=== PATIENT | male | born 1970 | race Caucasian/White ===

== ENCOUNTER 2016-12-19 11:12 | Inpatient (IN) | payer BC ==
--- NOTE | 2016-12-19 11:58 | CPEKG ---
Heart Rate: 92 RR Interval: 652 P-R Interval: 184 QRSD Interval: 88 QT Interval: 348 QTC Interval: 431 P [place]: 50 QRS [place]: 29 T Wave [place]: 1 EKG Severity - BORDERLINE ECG - EKG Impression: SINUS RHYTHM EKG Impression: BORDERLINE T ABNORMALITIES, INFERIOR LEADS Electronically Signed By: Hever Vee 19-Dec-2016 14:25:16
--- NOTE | 2016-12-19 11:58 | CPEKG ---
Heart Rate: 92 RR Interval: 652 P-R Interval: 184 QRSD Interval: 88 QT Interval: 348 QTC Interval: 431 P [place]: 50 QRS [place]: 29 T Wave [place]: 1 EKG Severity - BORDERLINE ECG - EKG Impression: SINUS RHYTHM EKG Impression: BORDERLINE T ABNORMALITIES, INFERIOR LEADS Electronically Signed By: Hever Vee 19-Dec-2016 14:25:16
--- NOTE | 2016-12-19 12:10 | EDPHY ---
H & P Time Seen by Provider: 12/19/16 11:53 HPI/ROS: CHIEF COMPLAINT: Fever and chills HISTORY OF PRESENT ILLNESS: 46-year-old man was admitted last year and had fever of unknown origin. Discharge on 11/23/2015 without antibiotics. Patient presents today with fever starting last week on Monday. He was symptomatic for 4 days and then his symptoms abated. The reoccurred this morning with symptomatic fever and chills as well as a nonproductive cough. He had some nausea and vomiting today with some epigastric abdominal pain which is been intermittent over the last 2 months. REVIEW OF SYSTEMS: Eye: no change in vision ENT: no sore throat Cardiac: no chest pain or syncope Pulmonary: Not short of breath, nonproductive cough Abdomen: No diarrhea. No coffee-ground emesis or hematemesis. Musculoskeletal: no back pain Skin: no rash, on Enbrel for dermatomyositis Neuro: no headache Constitutional: HPI : no urinary symptoms A comprehensive 10 point review of systems is otherwise negative aside from elements mentioned in the history of present illness. PAST MEDICAL HISTORY: MCTD, dermatomyositis, HTN, Afib Social history: No recent travel to developing country, no IVDA General Appearance: Alert and conversant, cooperative. Eyes: No scleral icterus. ENT, Mouth: Normal mucous membranes. Respiratory: Normal respiratory effort, breath sounds equal, lungs are clear to auscultation. Cardiovascular: Regular rate and rhythm. Gastrointestinal: Abdomen is soft and non tender. No McBurney's point tenderness and no Sdouza sign. Neurological: Alert and oriented x3. Normally conversant. Face symmetric, normal movement and sensation in all extremities. Skin: Diaphoretic. No petechiae or purpura. Musculoskeletal: No neck stiffness, normal range of motion of the neck. Psychiatric: Not agitated. Emergency Department course/MDM: 1320: Discussed with Javi for ID. Case discussed in detail, he recommends CT abdomen pelvis, 1g ertapenem IV. Infectious disease physician recommendation discussed with the patient and consented. IV fluids 2 liters. 12-lead EKG interpreted by me; official reading is in trace master. My interpretation is sinus rhythm rate 92 with no ischemic changes. CT scan reported to me by radiologist is negative for intra-abdominal abscess or other reason for fever. Smoking Status: Never smoked Constitutional: Initial Vital Signs Temperature (C) 38.4 C H 12/19/16 11:22 Heart Rate 120 H 12/19/16 11:22 Respiratory Rate 18 12/19/16 11:22 Blood Pressure 134/87 H 12/19/16 11:22 O2 Sat (%) 96 12/19/16 11:22 O2 Delivery Mode Room Air Allergies/Adverse Reactions: No Known Allergies Allergy (Verified 11/08/15 08:52) Home Medications: Medication Instructions Recorded Bisoprolol Fumarate [Zebeta (*)] 5 mg PO DAILY 11/08/15 Folic Acid [Folic Acid 1 MG (*)] 2 mg PO DAILY 11/08/15 Hydroxychloroquine Sulfate 400 mg PO DAILY 11/08/15 [Plaquenil 200 mg (*)] Etanercept [Enbrel] 50 mg SQ MO 12/19/16 Methotrexate Sodium [Rheumatrex 12.5 mg PO WE 12/19/16 2.5 mg (RX)] Medical Decision Making - Diagnostics Imaging Results: Imaging Impressions Chest X-Ray 12/19/16 12:10 Impression: Stable and normal. No pneumonia. Differential Diagnosis: Differential considered including but not limited to pneumonia, intra-abdominal abscess, UTI, sepsis, meningitis, viral syndrome. Consult/Admit Bed Type: [place] [id number] - Data Points Laboratory Results: Laboratory Results 12/19/16 11:35 12/19/16 11:35 12/19/16 12/19/16 12/19/16 12:55 12:20 11:35 WBC RBC Hgb Hct MCV MCH MCHC RDW Plt Count MPV Neut % (Auto) Lymph % (Auto) [place] % (Auto) Eos % (Auto) Baso % (Auto) Nucleat RBC Rel Count Absolute Neuts (auto) Absolute Lymphs (auto) Absolute Monos (auto) Absolute Eos (auto) Absolute Basos (auto) Absolute Nucleated RBC Immature Gran % Seg Neutrophils % Band Neutrophils % Lymphocytes % Monocytes % Immature Gran # Absolute Seg Neuts Absolute Band Neuts Absolute Lymphocytes Absolute Monocytes Toxic Granulation Platelet Estimate Large Platelets PT INR APTT VBG Lactic Acid 1.8 mmol/L mmol/L (0.7-2.1) Sodium 140 mEq/L mEq/L (134-144) Potassium 4.0 mEq/L mEq/L (3.5-5.2) Chloride 103 mEq/L mEq/L (97-110) Carbon Dioxide 19 mEq/l L mEq/l (22-31) Anion Gap 18 mEq/L H mEq/L (8-16) BUN 16 mg/dL mg/dL (7-23) Creatinine 1.1 mg/dL mg/dL (0.7-1.3) Estimated GFR > 60 Glucose 108 mg/dL H mg/dL (70-100) Calcium 9.9 mg/dL mg/dL (8.5-10.4) Total Bilirubin 2.9 mg/dL H mg/dL (0.1-1.4) Conjugated Bilirubin 0.7 mg/dL H mg/dL (0.0-0.5) Unconjugated Bilirubin 2.2 mg/dL H mg/dL (0.0-1.1) AST ALT Alkaline Phosphatase Total Protein Albumin Procalcitonin Urine Color CINDY Urine Appearance HAZY Urine pH 5.0 (5.0-7.5) Ur Specific [place] 1.028 (1.002-1.030) Urine Protein NEGATIVE (NEGATIVE) Urine Ketones NEGATIVE (NEGATIVE) Urine Blood NEGATIVE (NEGATIVE) Urine Nitrate NEGATIVE (NEGATIVE) Urine Bilirubin NEGATIVE (NEGATIVE) Urine Urobilinogen 2.0 EU H EU (0.2-1.0) Ur Leukocyte Esterase NEGATIVE (NEGATIVE) Urine Glucose NEGATIVE (NEGATIVE) 12/19/16 12/19/16 12/19/16 11:35 11:35 11:30 WBC 26.84 10^3/uL H 10^3/uL (3.80-9.50) RBC 5.11 10^6/uL 10^6/uL (4.40-6.38) Hgb 16.4 g/dL g/dL (13.7-17.5) Hct 45.7 % % (40.0-51.0) MCV 89.4 fL fL (81.5-99.8) MCH 32.1 pg pg (27.9-34.1) MCHC 35.9 g/dL g/dL (32.4-36.7) RDW 12.3 % % (11.5-15.2) Plt Count 269 10^3/uL 10^3/uL (150-400) MPV 9.9 fL fL (8.7-11.7) Neut % (Auto) Not Reported Lymph % (Auto) Not Reported [place] % (Auto) Not Reported Eos % (Auto) Not Reported Baso % (Auto) Not Reported Nucleat RBC Rel Count 0.0 % % (0.0-0.2) Absolute Neuts (auto) Not Reported Absolute Lymphs (auto) Not Reported Absolute Monos (auto) Not Reported Absolute Eos (auto) Not Reported Absolute Basos (auto) Not Reported Absolute Nucleated RBC 0.00 10^3/uL 10^3/uL (0-0.01) Immature Gran % Not Reported Seg Neutrophils % 81 % % Band Neutrophils % 8 % % Lymphocytes % 8 % % Monocytes % 3 % % Immature Gran # Not Reported Absolute Seg Neuts 21.74 10^/uL H 10^/uL (1.70-6.50) Absolute Band Neuts 2.15 10^3/uL H 10^3/uL (0.00-0.70) Absolute Lymphocytes 2.15 10^3/uL 10^3/uL (1.00-3.00) Absolute Monocytes 0.81 10^3/uL H 10^3/uL (0.30-0.80) Toxic Granulation PRESENT H Platelet Estimate ADEQUATE (ADEQ) Large Platelets PRESENT H PT 13.8 SEC SEC (12.0-15.0) INR 1.07 (0.83-1.16) APTT 27.7 SEC SEC (23.0-38.0) VBG Lactic Acid Sodium Potassium Chloride Carbon Dioxide Anion Gap BUN Creatinine Estimated GFR Glucose Calcium Total Bilirubin 2.9 mg/dL H mg/dL (0.1-1.4) Conjugated Bilirubin 0.0 mg/dL mg/dL (0.0-0.5) Unconjugated Bilirubin 2.2 mg/dL H mg/dL (0.0-1.1) AST 31 IU/L IU/L (17-59) ALT 48 IU/L IU/L (21-72) Alkaline Phosphatase 66 IU/L IU/L (38-126) Total Protein 7.8 g/dL g/dL (6.3-8.2) Albumin 4.7 g/dL g/dL (3.5-5.0) Procalcitonin 0.83 ng/mL H ng/mL (0.02-0.10) Urine Color Urine Appearance Urine pH Ur Specific [place] Urine Protein Urine Ketones Urine Blood Urine Nitrate Urine Bilirubin Urine Urobilinogen Ur Leukocyte Esterase Urine Glucose Medications Given: Discontinued Medications Sodium Chloride (Ns) 1,000 mls @ 0 mls/hr IV EDNOW ONE; Wide Open PRN Reason: Protocol Stop: 12/19/16 13:10 Last Admin: 12/19/16 13:21 Dose: 1,000 mls Sodium Chloride (Ns) 1,000 mls @ 0 mls/hr IV EDNOW ONE; Wide Open PRN Reason: Protocol Stop: 12/19/16 13:10 Last Admin: 12/19/16 13:22 Dose: 1,000 mls Ertapenem 1 gm/ Sodium (Chloride) 100 mls @ 200 mls/hr IV EDNOW ONE PRN Reason: Protocol Stop: 12/19/16 13:50 Last Admin: 12/19/16 14:15 Dose: 100 mls Ondansetron HCl (Zofran) 4 mg IVP EDNOW ONE Stop: 12/19/16 13:10 Last Admin: 12/19/16 13:21 Dose: 4 mg Departure - Departure Disposition: [facility] Inpatient Acute Clinical Impression: Fever Qualifiers: Fever type: unspecified Qualified Code(s): R50.9 - Fever, unspecified Condition: Good
[2016-12-19 12:18] LABS: PLATELET COUNT 269 10^3/uL (150-400)
[2016-12-19 12:26] LABS: INR 1.07 (0.83-1.16); PROTIME(PATIENT) 13.8 SEC (12.0-15.0)
[2016-12-19] MEDS ORDERED: NS 1,000 ML IV ONE ×2 (13:09)
[2016-12-19] MEDS ORDERED: ONDANSETRON 4 MG/2 ML VIAL IVP ONE (13:09)
[2016-12-19] MEDS ORDERED: ERTAPENEM 1 GM in NS 100 ML IV ONE (13:21)
[2016-12-19] MEDS ORDERED: IOPAMIDOL (ISOVUE-300) 100 ML BTL ONE (13:40)
[2016-12-19] MEDS ORDERED: ONDANSETRON 4 MG/2 ML VIAL IVP PRN (15:06)
[2016-12-19] MEDS ORDERED: ONDANSETRON DISINTEGRATING 4 MG TAB PO PRN (15:06)
[2016-12-19] MEDS ORDERED: ACETAMINOPHEN 325 MG TAB PO PRN (15:06)
--- NOTE | 2016-12-19 15:06 | PDGENHP ---
History and Physical - Chief Complaint fever, myalgias - History of Present Illness 46 yo male with h/o mixed connective tissue disease on chronic immunosuppression presents to ED with myalgias and fever without a source. He developed myalgias, nausea, and headaches about a week ago. He felt better for several days. Last night he developed cold sweats, shakes/chills, and diffuse myalgias, localized mostly in his legs. He also had some headaches and nausea / vomiting, but denies headache or neck pain now. Some tenderness in his lower right back, but no dysuria, frequency, urgency or hematuria. He developed a cough this morning, non-productive. No sore throat. He has a h/o dermatomyositis, diagnosed in 2011. Rheumatology at [facility] changed his diagnosis to unspecified MCTD. He takes Enbrel, MTX and Plaquenil. When this presented, he had similar symptoms with myalgias, some low grade fevers, and rash. In addition, he was admitted one year ago with similar presentation and no source was found. In the ED, CXR, abdomen/pelvis CT and UA were unrevealing for source of infection. Blood cultures were drawn and he was started on empiric ertapenem. He is admitted to the hospital for further management. History Information - Allergies/Home Medication List Allergies/Adverse Reactions: No Known Allergies Allergy (Verified 11/08/15 08:52) Home Medications: Bisoprolol Fumarate [Zebeta (*)] 5 mg PO DAILY 11/08/15 [Last Taken 12/18/16] Folic Acid [Folic Acid 1 MG (*)] 2 mg PO DAILY 11/08/15 [Last Taken 12/18/16] Hydroxychloroquine Sulfate [Plaquenil 200 mg (*)] 400 mg PO DAILY 11/08/15 [ Last Taken 12/18/16] Etanercept [Enbrel] 50 mg SQ MO 12/19/16 [Last Taken 12/12/16] Methotrexate Sodium [Rheumatrex 2.5 mg (RX)] 12.5 mg PO WE 12/19/16 [Last Taken 12/14/16] I have personally reviewed and updated: family history, medical history, social history, surgical history - Past Medical History atrial fibrillation, hypertension Additional medical history: Undifferentiated mixed connective tissue disease. Previously carried diagnoses of dermatomyositis, psoriatic arthritis and discoid lupus. Now followed by Dr. Deshpande, rheumatology at [facility] - Surgical History Reports: no pertinent surgical hx - Family History Positive for: CAD - Social History Smoking Status: Never smoked Alcohol Use: None Drug Use: None Additional social history: Originally from [place], here for past 9 yrs. Works in [employer]. Review of Systems Review of Systems: ROS: 10pt was reviewed & negative except for what was stated in HPI & below Physical Exam Physical Exam: Temp Pulse Resp BP Pulse Ox 36.6 C 75 16 123/76 H 97 12/19/16 14:54 12/19/16 14:54 12/19/16 14:54 12/19/16 14:54 12/19/16 14:54 O2 (L/minute) 2 Constitutional: no apparent distress Eyes: PERRL Ears, Nose, Mouth, Throat: moist mucous membranes Cardiovascular: regular rate and rhythym, no murmur, rub, or gallop Respiratory: no respiratory distress, clear to auscultation Gastrointestinal: normoactive bowel sounds, soft, non-tender abdomen Skin: warm Musculoskeletal: full muscle strength Neurologic: AAOx3 Psychiatric: interacting appropriately Lab Data & Imaging Review 12/19/16 11:35 12/19/16 11:35 WBC 26.84 10^3/uL (3.80-9.50) H 12/19/16 11:35 RBC 5.11 10^6/uL (4.40-6.38) 12/19/16 11:35 Hgb 16.4 g/dL (13.7-17.5) 12/19/16 11:35 Hct 45.7 % (40.0-51.0) 12/19/16 11:35 MCV 89.4 fL (81.5-99.8) 12/19/16 11:35 MCH 32.1 pg (27.9-34.1) 12/19/16 11:35 MCHC 35.9 g/dL (32.4-36.7) 12/19/16 11:35 RDW 12.3 % (11.5-15.2) 12/19/16 11:35 Plt Count 269 10^3/uL (150-400) 12/19/16 11:35 MPV 9.9 fL (8.7-11.7) 12/19/16 11:35 Neut % (Auto) Not Reported 12/19/16 11:35 Lymph % (Auto) Not Reported 12/19/16 11:35 [place] % (Auto) Not Reported 12/19/16 11:35 Eos % (Auto) Not Reported 12/19/16 11:35 Baso % (Auto) Not Reported 12/19/16 11:35 Nucleat RBC Rel Count 0.0 % (0.0-0.2) 12/19/16 11:35 Absolute Neuts (auto) Not Reported 12/19/16 11:35 Absolute Lymphs (auto) Not Reported 12/19/16 11:35 Absolute Monos (auto) Not Reported 12/19/16 11:35 Absolute Eos (auto) Not Reported 12/19/16 11:35 Absolute Basos (auto) Not Reported 12/19/16 11:35 Absolute Nucleated RBC 0.00 10^3/uL (0-0.01) 12/19/16 11:35 Immature Gran % Not Reported 12/19/16 11:35 Seg Neutrophils % 81 % 12/19/16 11:35 Band Neutrophils % 8 % 12/19/16 11:35 Lymphocytes % 8 % 12/19/16 11:35 Monocytes % 3 % 12/19/16 11:35 Immature Gran # Not Reported 12/19/16 11:35 Absolute Seg Neuts 21.74 10^/uL (1.70-6.50) H 12/19/16 11:35 Absolute Band Neuts 2.15 10^3/uL (0.00-0.70) H 12/19/16 11:35 Absolute Lymphocytes 2.15 10^3/uL (1.00-3.00) 12/19/16 11:35 Absolute Monocytes 0.81 10^3/uL (0.30-0.80) H 12/19/16 11:35 Toxic Granulation PRESENT H 12/19/16 11:35 Platelet Estimate ADEQUATE (ADEQ) 12/19/16 11:35 Large Platelets PRESENT H 12/19/16 11:35 PT 13.8 SEC (12.0-15.0) 12/19/16 11:35 INR 1.07 (0.83-1.16) 12/19/16 11:35 APTT 27.7 SEC (23.0-38.0) 12/19/16 11:35 VBG Lactic Acid 1.8 mmol/L (0.7-2.1) 12/19/16 12:20 Sodium 140 mEq/L (134-144) 12/19/16 11:35 Potassium 4.0 mEq/L (3.5-5.2) 12/19/16 11:35 Chloride 103 mEq/L (97-110) 12/19/16 11:35 Carbon Dioxide 19 mEq/l (22-31) L 12/19/16 11:35 Anion Gap 18 mEq/L (8-16) H 12/19/16 11:35 BUN 16 mg/dL (7-23) 12/19/16 11:35 Creatinine 1.1 mg/dL (0.7-1.3) 12/19/16 11:35 Estimated GFR > 60 12/19/16 11:35 Glucose 108 mg/dL (70-100) H 12/19/16 11:35 Calcium 9.9 mg/dL (8.5-10.4) 12/19/16 11:35 Total Bilirubin 2.9 mg/dL (0.1-1.4) H 12/19/16 11:35 Conjugated Bilirubin 0.7 mg/dL (0.0-0.5) H 12/19/16 11:35 Unconjugated Bilirubin 2.2 mg/dL (0.0-1.1) H 12/19/16 11:35 AST 31 IU/L (17-59) 12/19/16 11:30 ALT 48 IU/L (21-72) 12/19/16 11:30 Alkaline Phosphatase 66 IU/L (38-126) 12/19/16 11:30 Total Protein 7.8 g/dL (6.3-8.2) 12/19/16 11:30 Albumin 4.7 g/dL (3.5-5.0) 12/19/16 11:30 Procalcitonin 0.83 ng/mL (0.02-0.10) H 12/19/16 11:30 Urine Color CINDY 12/19/16 12:55 Urine Appearance HAZY 12/19/16 12:55 Urine pH 5.0 (5.0-7.5) 12/19/16 12:55 Ur Specific [place] 1.028 (1.002-1.030) 12/19/16 12:55 Urine Protein NEGATIVE (NEGATIVE) 12/19/16 12:55 Urine Ketones NEGATIVE (NEGATIVE) 12/19/16 12:55 Urine Blood NEGATIVE (NEGATIVE) 12/19/16 12:55 Urine Nitrate NEGATIVE (NEGATIVE) 12/19/16 12:55 Urine Bilirubin NEGATIVE (NEGATIVE) 12/19/16 12:55 Urine Urobilinogen 2.0 EU (0.2-1.0) H 12/19/16 12:55 Ur Leukocyte Esterase NEGATIVE (NEGATIVE) 12/19/16 12:55 Urine Glucose NEGATIVE (NEGATIVE) 12/19/16 12:55 Visualized and Interpreted Chest x-ray results: Yes Chest X-Ray results: no infiltrate Visualized and Interpreted EKG results: Yes EKG Interpretation: Positive for: normal sinsus rhythm EKG additional interpertation: T wave changes in inferior leads, unchanged from prior Assessment & Plan Assessment: Fever and leukocytosis in immunocompromised pt - No obvious source of infection. UA bland, CXR neg, abd CT normal. No tim, nuchal rigidity or neurologic symptoms to suggest meningitis. He does have some URI symptoms, wouldn't expect viral URI to cause leukocytosis with left shift. Unclear if this is related to his auto-immune disease. Discussed case with [facility] rheum, who doubts rheumatologic fever. Notes wbc's were 17.5 last week without symptoms, baseline wbc 7-9. CRP was 1.7 last week, now 23.1. -blood cultures pending -cont empiric Ertapenem while awaiting cultures -ID consult requested -send respiratory pathogen panel -hold immunosuppresants for now -trend wbc's, CRP Undifferentiated mixed connective tissue disease - previously carried diagnoses of lupus, psoriatic arthritis and dermatomyositis. He seems to think this is similar to previous flares. He was managed on Prednisone for 4 years. Discussed with [facility] rheum, who does not recommend prednisone at this time. -hold plaquenil, enbrel and MTX for now Hypertension - cont BB Hyperbilirubinemia - chronic, unchanged Full code DVT PPLX - SCD's, ambulation Dispo - admit to inpt, suspect he'll require >48 hrs hospitalization for ongoing evaluation of fever and leukocytosis
--- NOTE | 2016-12-19 15:06 | PDGENHP ---
History and Physical - Chief Complaint fever, myalgias - History of Present Illness 46 yo male with h/o mixed connective tissue disease on chronic immunosuppression presents to ED with myalgias and fever without a source. He developed myalgias, nausea, and headaches about a week ago. He felt better for several days. Last night he developed cold sweats, shakes/chills, and diffuse myalgias, localized mostly in his legs. He also had some headaches and nausea / vomiting, but denies headache or neck pain now. Some tenderness in his lower right back, but no dysuria, frequency, urgency or hematuria. He developed a cough this morning, non-productive. No sore throat. He has a h/o dermatomyositis, diagnosed in 2011. Rheumatology at [facility] changed his diagnosis to unspecified MCTD. He takes Enbrel, MTX and Plaquenil. When this presented, he had similar symptoms with myalgias, some low grade fevers, and rash. In addition, he was admitted one year ago with similar presentation and no source was found. In the ED, CXR, abdomen/pelvis CT and UA were unrevealing for source of infection. Blood cultures were drawn and he was started on empiric ertapenem. He is admitted to the hospital for further management. History Information - Allergies/Home Medication List Allergies/Adverse Reactions: No Known Allergies Allergy (Verified 11/08/15 08:52) Home Medications: Bisoprolol Fumarate [Zebeta (*)] 5 mg PO DAILY 11/08/15 [Last Taken 12/18/16] Folic Acid [Folic Acid 1 MG (*)] 2 mg PO DAILY 11/08/15 [Last Taken 12/18/16] Hydroxychloroquine Sulfate [Plaquenil 200 mg (*)] 400 mg PO DAILY 11/08/15 [ Last Taken 12/18/16] Etanercept [Enbrel] 50 mg SQ MO 12/19/16 [Last Taken 12/12/16] Methotrexate Sodium [Rheumatrex 2.5 mg (RX)] 12.5 mg PO WE 12/19/16 [Last Taken 12/14/16] I have personally reviewed and updated: family history, medical history, social history, surgical history - Past Medical History atrial fibrillation, hypertension Additional medical history: Undifferentiated mixed connective tissue disease. Previously carried diagnoses of dermatomyositis, psoriatic arthritis and discoid lupus. Now followed by Dr. Deshpande, rheumatology at [facility] - Surgical History Reports: no pertinent surgical hx - Family History Positive for: CAD - Social History Smoking Status: Never smoked Alcohol Use: None Drug Use: None Additional social history: Originally from [place], here for past 9 yrs. Works in [employer]. Review of Systems Review of Systems: ROS: 10pt was reviewed & negative except for what was stated in HPI & below Physical Exam Physical Exam: Temp Pulse Resp BP Pulse Ox 36.6 C 75 16 123/76 H 97 12/19/16 14:54 12/19/16 14:54 12/19/16 14:54 12/19/16 14:54 12/19/16 14:54 O2 (L/minute) 2 Constitutional: no apparent distress Eyes: PERRL Ears, Nose, Mouth, Throat: moist mucous membranes Cardiovascular: regular rate and rhythym, no murmur, rub, or gallop Respiratory: no respiratory distress, clear to auscultation Gastrointestinal: normoactive bowel sounds, soft, non-tender abdomen Skin: warm Musculoskeletal: full muscle strength Neurologic: AAOx3 Psychiatric: interacting appropriately Lab Data & Imaging Review 12/19/16 11:35 12/19/16 11:35 WBC 26.84 10^3/uL (3.80-9.50) H 12/19/16 11:35 RBC 5.11 10^6/uL (4.40-6.38) 12/19/16 11:35 Hgb 16.4 g/dL (13.7-17.5) 12/19/16 11:35 Hct 45.7 % (40.0-51.0) 12/19/16 11:35 MCV 89.4 fL (81.5-99.8) 12/19/16 11:35 MCH 32.1 pg (27.9-34.1) 12/19/16 11:35 MCHC 35.9 g/dL (32.4-36.7) 12/19/16 11:35 RDW 12.3 % (11.5-15.2) 12/19/16 11:35 Plt Count 269 10^3/uL (150-400) 12/19/16 11:35 MPV 9.9 fL (8.7-11.7) 12/19/16 11:35 Neut % (Auto) Not Reported 12/19/16 11:35 Lymph % (Auto) Not Reported 12/19/16 11:35 [place] % (Auto) Not Reported 12/19/16 11:35 Eos % (Auto) Not Reported 12/19/16 11:35 Baso % (Auto) Not Reported 12/19/16 11:35 Nucleat RBC Rel Count 0.0 % (0.0-0.2) 12/19/16 11:35 Absolute Neuts (auto) Not Reported 12/19/16 11:35 Absolute Lymphs (auto) Not Reported 12/19/16 11:35 Absolute Monos (auto) Not Reported 12/19/16 11:35 Absolute Eos (auto) Not Reported 12/19/16 11:35 Absolute Basos (auto) Not Reported 12/19/16 11:35 Absolute Nucleated RBC 0.00 10^3/uL (0-0.01) 12/19/16 11:35 Immature Gran % Not Reported 12/19/16 11:35 Seg Neutrophils % 81 % 12/19/16 11:35 Band Neutrophils % 8 % 12/19/16 11:35 Lymphocytes % 8 % 12/19/16 11:35 Monocytes % 3 % 12/19/16 11:35 Immature Gran # Not Reported 12/19/16 11:35 Absolute Seg Neuts 21.74 10^/uL (1.70-6.50) H 12/19/16 11:35 Absolute Band Neuts 2.15 10^3/uL (0.00-0.70) H 12/19/16 11:35 Absolute Lymphocytes 2.15 10^3/uL (1.00-3.00) 12/19/16 11:35 Absolute Monocytes 0.81 10^3/uL (0.30-0.80) H 12/19/16 11:35 Toxic Granulation PRESENT H 12/19/16 11:35 Platelet Estimate ADEQUATE (ADEQ) 12/19/16 11:35 Large Platelets PRESENT H 12/19/16 11:35 PT 13.8 SEC (12.0-15.0) 12/19/16 11:35 INR 1.07 (0.83-1.16) 12/19/16 11:35 APTT 27.7 SEC (23.0-38.0) 12/19/16 11:35 VBG Lactic Acid 1.8 mmol/L (0.7-2.1) 12/19/16 12:20 Sodium 140 mEq/L (134-144) 12/19/16 11:35 Potassium 4.0 mEq/L (3.5-5.2) 12/19/16 11:35 Chloride 103 mEq/L (97-110) 12/19/16 11:35 Carbon Dioxide 19 mEq/l (22-31) L 12/19/16 11:35 Anion Gap 18 mEq/L (8-16) H 12/19/16 11:35 BUN 16 mg/dL (7-23) 12/19/16 11:35 Creatinine 1.1 mg/dL (0.7-1.3) 12/19/16 11:35 Estimated GFR > 60 12/19/16 11:35 Glucose 108 mg/dL (70-100) H 12/19/16 11:35 Calcium 9.9 mg/dL (8.5-10.4) 12/19/16 11:35 Total Bilirubin 2.9 mg/dL (0.1-1.4) H 12/19/16 11:35 Conjugated Bilirubin 0.7 mg/dL (0.0-0.5) H 12/19/16 11:35 Unconjugated Bilirubin 2.2 mg/dL (0.0-1.1) H 12/19/16 11:35 AST 31 IU/L (17-59) 12/19/16 11:30 ALT 48 IU/L (21-72) 12/19/16 11:30 Alkaline Phosphatase 66 IU/L (38-126) 12/19/16 11:30 Total Protein 7.8 g/dL (6.3-8.2) 12/19/16 11:30 Albumin 4.7 g/dL (3.5-5.0) 12/19/16 11:30 Procalcitonin 0.83 ng/mL (0.02-0.10) H 12/19/16 11:30 Urine Color CINDY 12/19/16 12:55 Urine Appearance HAZY 12/19/16 12:55 Urine pH 5.0 (5.0-7.5) 12/19/16 12:55 Ur Specific [place] 1.028 (1.002-1.030) 12/19/16 12:55 Urine Protein NEGATIVE (NEGATIVE) 12/19/16 12:55 Urine Ketones NEGATIVE (NEGATIVE) 12/19/16 12:55 Urine Blood NEGATIVE (NEGATIVE) 12/19/16 12:55 Urine Nitrate NEGATIVE (NEGATIVE) 12/19/16 12:55 Urine Bilirubin NEGATIVE (NEGATIVE) 12/19/16 12:55 Urine Urobilinogen 2.0 EU (0.2-1.0) H 12/19/16 12:55 Ur Leukocyte Esterase NEGATIVE (NEGATIVE) 12/19/16 12:55 Urine Glucose NEGATIVE (NEGATIVE) 12/19/16 12:55 Visualized and Interpreted Chest x-ray results: Yes Chest X-Ray results: no infiltrate Visualized and Interpreted EKG results: Yes EKG Interpretation: Positive for: normal sinsus rhythm EKG additional interpertation: T wave changes in inferior leads, unchanged from prior Assessment & Plan Assessment: Fever and leukocytosis in immunocompromised pt - No obvious source of infection. UA bland, CXR neg, abd CT normal. No tim, nuchal rigidity or neurologic symptoms to suggest meningitis. He does have some URI symptoms, wouldn't expect viral URI to cause leukocytosis with left shift. Unclear if this is related to his auto-immune disease. Discussed case with [facility] rheum, who doubts rheumatologic fever. Notes wbc's were 17.5 last week without symptoms, baseline wbc 7-9. CRP was 1.7 last week, now 23.1. -blood cultures pending -cont empiric Ertapenem while awaiting cultures -ID consult requested -send respiratory pathogen panel -hold immunosuppresants for now -trend wbc's, CRP Undifferentiated mixed connective tissue disease - previously carried diagnoses of lupus, psoriatic arthritis and dermatomyositis. He seems to think this is similar to previous flares. He was managed on Prednisone for 4 years. Discussed with [facility] rheum, who does not recommend prednisone at this time. -hold plaquenil, enbrel and MTX for now Hypertension - cont BB Hyperbilirubinemia - chronic, unchanged Full code DVT PPLX - SCD's, ambulation Dispo - admit to inpt, suspect he'll require >48 hrs hospitalization for ongoing evaluation of fever and leukocytosis
[2016-12-19] MEDS ORDERED: NS 1,000 ML IV SCH (15:15)
[2016-12-19] MEDS: PANTOPRAZOLE SODIUM 40 MG TAB PO SCH (15:29)
[2016-12-19] MEDS: BISOPROLOL FUMARATE 5 MG TAB PO SCH (16:17)
--- NOTE | 2016-12-19 18:52 | PCMIDPN ---
Assessment/Plan: Assessment: 46-year-old male with history of mixed connective tissue disorder. Patient had been seen by our service last year for similar presentation. He is immunosuppressed due to his underlying autoimmune condition. Therefore presentation with high fever and septic like syndrome cannot be ignored as simply an immune response due to rheumatologic disorder. Therefore we will cover with IV ertapenem empirically until cultures can be incubated for long enough so we are sure that he is not bacteremic due to immunosuppression. Abdomen and pelvis CT earlier today was somewhat reassuring as it showed no obvious intra-abdominal pathology. Initial white blood cell count shows an impressive leukocytosis to 26.8. This mimics his presentation last year. Plan: 1. Continue IV ertapenem. 2. Monitor fever curve as well as white blood cell count. Subjective: Patient is resting comfortably in his hospital bed. He states he feels feverish and achy. No other specific complaint. Objective: Ertapenem #1 Vital Signs Temp Pulse Resp BP Pulse Ox 36.6 C 75 16 123/76 H 97 12/19/16 14:54 12/19/16 16:17 12/19/16 14:54 12/19/16 16:17 12/19/16 14:54 12/18/16 12/19/16 12/20/16 05:59 05:59 05:59 Intake Total 600 Balance 600 C-Reactive Protein 21.3 mg/L (<10.0) H 12/19/16 10:30 - Physical Exam General Appearance: WD/WN, alert, no apparent distress, toxic (Mildly) Respiratory: lungs clear, normal breath sounds, No respiratory distress Cardiac/Chest: regular rate, rhythm, No tachycardia Skin: normal color, warm/dry, No rash Neuro/Psych: alert, normal mood/affect, oriented x 3 ICD10 Worksheet Patient Problems: Problems Problem Status Onset Fever Acute Body aches Acute Cough Acute Leukocytosis Acute Viral syndrome Acute
[2016-12-20 05:16] LABS: PLATELET COUNT 231 10^3/uL (150-400)
[2016-12-20] MEDS ORDERED: ERTAPENEM 1 GM in NS 100 ML IV SCH (09:00)
--- NOTE | 2016-12-20 09:21 | PDMN ---
Medical Necessity Medical necessity: M160: sepsis and other febrile illness, without focal infection- fever ( 38.4) - leukocytosis( 26.8) , myalgias, N, FERNANDEZ, X 1 week., in immunocompromised pt. ( mixed connective tissue disorder) with further eval and tx needed. MD anticipates > 2 midnights ongoing med nec care
[2016-12-20] MEDS: BISOPROLOL FUMARATE 5 MG TAB PO SCH (10:51)
[2016-12-20] MEDS: PANTOPRAZOLE SODIUM 40 MG TAB PO SCH (10:51)
[2016-12-20] MEDS: FOLIC ACID 1 MG TAB PO SCH (10:51)
--- NOTE | 2016-12-20 11:40 | HOSPPROG ---
Hospitalist Progress Note Assessment/Plan: 46 yo M with hx of MCTD on chronic immune suppression presenting with fever, leukocytosis and upper respiratory sxs # fever/leukocytosis: in the setting of chronic immune suppression. Only localizing sxs are respiratory--respiratory pcr panel negative. CXR personally reviewed without any s/s of pneumonia. Sputum culture ordered, blood cxs with ngtd. UA negative. Patient suspects that this is related to underlying rheumatologic condition, discussed with Liam Deshpande, patients associate director financial aid at [facility], as next. Ertapenem empirically for now, appreciate ID consult. # MCTD: discussed with Dr. Deshpande of rheumatology as above, he states it is very unlikely this is related to rheum condition given being on mtx/enbrel and recommends holding those medications, not starting pred etc, and treating this as infection until proven otherwise. W/u for this condition has been long and relatively unrevealing over the years per Dr. Deshpande, but currently being treated as MCTD. CRP elevated today to 123, ck has been normal. Will continue to hold immune suppressants and continue infectious w/u as above. # chronic immune suppression: holding for now as above # elevated bilirubin: trending down with otherwise normal lfts, all unconjugated and suspect underlying Gilbert's # AGMA: resolved, lactate was wnl, no ketones in urine # dispo: IP status given high risk presenting issue requiring further w/u and evaluation Patient new to my care. Old records reviewed and summarized as above. Care plan reviewed with Dr. Deshpande including plans to continue to hold immune suppressants and consider this infectious Subjective: no significant overnight events, patient continues to feel achy but afebrile since yesterday morning, has cough productive of "bright green" sputum Objective: Vital Signs Temp Pulse Resp BP Pulse Ox 36.8 C 69 18 128/83 H 93 12/20/16 09:31 12/20/16 09:31 12/20/16 09:31 12/20/16 09:31 12/20/16 09:31 Microbiology 12/19/16 17:55 Respiratory Panel (PCR) - Final Nasal, Sinus - Swab No Organism Detected Laboratory Results 12/20/16 04:36 12/20/16 04:36 12/19/16 12/20/16 12/21/16 05:59 05:59 05:59 Intake Total 1050 Balance 1050 PT 13.8 SEC (12.0-15.0) 12/19/16 11:35 INR 1.07 (0.83-1.16) 12/19/16 11:35 awake alert nad anicteric op clear rrr no mrg cta, breath sounds clear, cough that was non productive soft nt nd no cce warm dry well perfused oriented appropriate ICD10 Worksheet Patient Problems: Problems Problem Status Onset Viral syndrome Acute Fever Acute Cough Acute Leukocytosis Acute Body aches Acute
--- NOTE | 2016-12-20 15:47 | PCMIDPN ---
Assessment/Plan: Episodic fever and leukocytosis, last episode 1 year ago. Odd pattern. Noted underlying rheumatologic d/o (specific name is still up in the air) on Enbrel/ MTX/Plaquenil. No focal symptomatology except for "bone pain" and fatigue worse than baseline --unclear etiology, but with quick was solution infectious etiology seems less likely. --will send LDH, immunoglobulins and IgE, SAHIL 2 and an SPEP. Consulted heme/ oncology for additional input --another day of antibiotics, until blood cx neg 48h - no clear indication for ertapenem will give ceftriaxone. --not clear to me that it is worthwhile to re-evaluate for periodic fever syndromes but could send a panel: [facility] mis/periodic fever syndrome panel [facility] [id number] Outside labs 08/2016 WBC 9.0 (53N/34L) 04/2016 WBC 9.1 (58N/28L) 11/2016 Complement C3 119, C4 20 Meds Ertapenem 1 g IV daily, # 2 Subjective: 46 yo male who we saw last year for high wbc associated with transient fever. Patient feels syndrome ppt by exertion. He had serologies for Coccidioides, cryptococcus, CMV, EBV, urine histo antigen, HIV, Legionella, malaria smear for relapsing fever - all studies were negative. In addition he had genetic testing for familial Mediterranean fever and tumor necrosis factor receptor associated periodically syndrome that was negative. Some testing was reviewed at outside facility: SPEP, complement levels all negative. Multiple sets of blood cultures have been negative. On admission patient had a fever to almost 104 and described associated severe "bone pain" on admit that has improved. In addition, no further fever since admit but still feels intermittently hot. Objective: Vital Signs Temp Pulse Resp BP Pulse Ox 36.8 C 69 18 128/83 H 93 12/20/16 09:31 12/20/16 09:31 12/20/16 09:31 12/20/16 09:31 12/20/16 09:31 Microbiology 12/19/16 17:55 Respiratory Panel (PCR) - Final Nasal, Sinus - Swab No Organism Detected Laboratory Results 12/20/16 04:36 12/20/16 04:36 12/19/16 12/20/16 12/21/16 05:59 05:59 05:59 Intake Total 1050 Balance 1050 1012/19/16 12/20/16 10:30 11:35 04:36 WBC 26.84 H 17.75 H D C-Reactive Protein 21.3 H 12/20/16 04:36 WBC C-Reactive Protein 124.5 H - Physical Exam General Appearance: alert, no apparent distress EENT: No scleral icterus, No pharyngeal erythema, No thrush Respiratory: lungs clear, No accessory muscle use Cardiac/Chest: regular rate, rhythm Extremities: No pedal edema, No swelling Skin: No rash Neuro/Psych: alert, normal mood/affect, oriented x 3 - Time Spent With Patient Time Spent with Patient: greater than 35 minutes Time Spent with Patient: Greater than 35 minutes spent on this patients care, greater than 50% of time spent counseling, educating, and coordinating care regarding the above mentioned plan. ICD10 Worksheet Patient Problems: Problems Problem Status Onset Fever Acute Body aches Acute Cough Acute Leukocytosis Acute Viral syndrome Acute
--- NOTE | 2016-12-20 17:09 | ASMTCASEMG ---
Discharge Plan Comments Coordination Status Comments Notes: Patient here for workup of symptoms. Unknown at this time what patients needs will be. Case management will follow. Date Signed: 12/20/2016 05:08 PM Electronically Signed By:JEFF Lynn
--- NOTE | 2016-12-20 17:11 | ASMTCMCOM ---
CM Note CM Note Notes: Patient here with history of autoimmune disease. Still working up patient to determine what symptoms represent. Patient not feeling well today. Case management kathrin continue to follow. Date Signed: 12/20/2016 05:11 PM Electronically Signed By:JEFF Lynn
[2016-12-21 04:52] LABS: PLATELET COUNT 259 10^3/uL (150-400)
[2016-12-21 08:47] VITALS: BP 122/84; PULSE 71; RESP 18; TEMP 97.8; O2SAT 94
[2016-12-21] MEDS: FOLIC ACID 1 MG TAB PO SCH (09:19)
[2016-12-21] MEDS: PANTOPRAZOLE SODIUM 40 MG TAB PO SCH (09:19)
[2016-12-21] MEDS: BISOPROLOL FUMARATE 5 MG TAB PO SCH (09:19)
--- NOTE | 2016-12-21 12:50 | PCMIDPN ---
Assessment/Plan: Episodic fever and leukocytosis, last episode 1 year ago. Odd pattern. Noted underlying rheumatologic d/o (specific name is still up in the air) on Enbrel/ MTX/Plaquenil. No focal symptomatology except for "bone pain" and fatigue worse than baseline --unclear etiology, but with quick was solution infectious etiology seems less likely. -- LDH, immunoglobulins and IgE, SAHIL 2 and an SPEP pending -- Consulted heme/oncology for additional input --dc off antibiotics, f/u in our office 7-10 days for lab follow up --not clear to me that it is worthwhile to re-evaluate for periodic fever syndromes but could send a panel: [facility] misc/periodic fever syndrome panel [facility] [id number] Outside labs 08/2016 WBC 9.0 (53N/34L) 04/2016 WBC 9.1 (58N/28L) 11/2016 Complement C3 119, C4 20 Meds abx #3 12/21/16 12:48 Subjective: febrile episodes with increased bone pain 5-6 times yearly, but only comes to care in most severe cases ready for discharge Objective: Vital Signs Temp Pulse Resp BP Pulse Ox 36.6 C 71 18 122/84 H 94 12/21/16 08:45 12/21/16 09:19 12/21/16 08:45 12/21/16 09:19 12/21/16 08:45 Microbiology 12/20/16 12:35 - Final Sputum, Expectorated Laboratory Results 12/21/16 04:28 12/21/16 04:28 12/20/16 12/21/16 12/22/16 05:59 05:59 05:59 Intake Total 1050 250 Balance 1050 250 C-Reactive Protein 124.5 mg/L (<10.0) H 12/20/16 04:36 - Physical Exam General Appearance: alert, no apparent distress Respiratory: No accessory muscle use Skin: No rash Neuro/Psych: alert, normal mood/affect - Time Spent With Patient Time Spent with Patient: greater than 25 minutes Time Spent with Patient: Greater than 25 minutes spent on this patients care, greater than 50% of time spent counseling, educating, and coordinating care regarding the above mentioned plan. ICD10 Worksheet Patient Problems: Problems Problem Status Onset Body aches Acute Cough Acute Fever Acute Leukocytosis Acute Viral syndrome Acute
--- NOTE | 2016-12-21 16:13 | PDDCSUM ---
Discharge Summary Discharge Summary: Dates of service 12/19-12/21/16 consultations: ID, oncology procedures performed: none Discharge dx: # fever/leukocytosis: in the setting of chronic immune suppression. Only localizing sxs are respiratory--respiratory pcr panel negative. CXR personally reviewed without any s/s of pneumonia. Sputum culture ordered, blood cxs with ngtd. UA negative. No infection discovered, discussed with rheum who do not feel this is related to MCTD. Oncology evaluated and do not have much to suggest , feel it is likely too early to do bone marrow biopsy etc. # MCTD: holding rheum meds until f/u with rheumatology in the next week, primary hot strip finisher Dr. Deshpande does not feel this is related to his MCTD # chronic immune suppression: holding for now as above # elevated bilirubin: trending down with otherwise normal lfts, all unconjugated and suspect underlying Gilbert's # AGMA: resolved, lactate was wnl, no ketones in urine dc home f/u with rheumatology, ID > 35 min spent in dc more than half in coordination of care
--- NOTE | 2016-12-21 16:13 | PDDCSUM ---
Discharge Summary Discharge Summary: Dates of service 12/19-12/21/16 consultations: ID, oncology procedures performed: none Discharge dx: # fever/leukocytosis: in the setting of chronic immune suppression. Only localizing sxs are respiratory--respiratory pcr panel negative. CXR personally reviewed without any s/s of pneumonia. Sputum culture ordered, blood cxs with ngtd. UA negative. No infection discovered, discussed with rheum who do not feel this is related to MCTD. Oncology evaluated and do not have much to suggest , feel it is likely too early to do bone marrow biopsy etc. # MCTD: holding rheum meds until f/u with rheumatology in the next week, primary rd project manager Dr. Deshpande does not feel this is related to his MCTD # chronic immune suppression: holding for now as above # elevated bilirubin: trending down with otherwise normal lfts, all unconjugated and suspect underlying Gilbert's # AGMA: resolved, lactate was wnl, no ketones in urine dc home f/u with rheumatology, ID > 35 min spent in dc more than half in coordination of care
--- NOTE | 2016-12-21 16:13 | PDDCSUM ---
Discharge Summary Discharge Summary: Dates of service 12/19-12/21/16 consultations: ID, oncology procedures performed: none Discharge dx: # fever/leukocytosis: in the setting of chronic immune suppression. Only localizing sxs are respiratory--respiratory pcr panel negative. CXR personally reviewed without any s/s of pneumonia. Sputum culture ordered, blood cxs with ngtd. UA negative. No infection discovered, discussed with rheum who do not feel this is related to MCTD. Oncology evaluated and do not have much to suggest , feel it is likely too early to do bone marrow biopsy etc. # MCTD: holding rheum meds until f/u with rheumatology in the next week, primary program review director Dr. Deshpande does not feel this is related to his MCTD # chronic immune suppression: holding for now as above # elevated bilirubin: trending down with otherwise normal lfts, all unconjugated and suspect underlying Gilbert's # AGMA: resolved, lactate was wnl, no ketones in urine dc home f/u with rheumatology, ID > 35 min spent in dc more than half in coordination of care
--- NOTE | 2016-12-21 16:20 | ASDISCHSUM ---
Discharge Information Plan Status:Has needs-TBD Medically Cleared to Leave: Discharge Date: CM D/C Disposition: ADT D/C Disposition:Home, Routine, Self-Care Projected Discharge Date: Transportation at D/C: Discharge Delay Reason: Follow-Up Date: Discharge Slot: Final Diagnosis: Placement Information Patient Contact Information Contact Name:VALENTINO Relationship: Address:[address] [place] Phone: [place] Phone: State/Zip Code:[place] [address] Email: Financial Information Financial Class:HMO and PPO Plans Primary Plan Desc: OUT OF STATE PPO Primary Plan Number:[id number] Secondary Plan Desc: Secondary Plan Number: Assessment Information [facility] Initial CM Assessment Discharge Plan Comments Coordination Status Comments Notes: Patient here for workup of symptoms. Unknown at this time what patients needs will be. Case management will follow. Date Signed: 12/20/2016 05:08 PM Electronically Signed By:JEFF Lynn [facility] CM Progress Note CM Note CM Note Notes: Patient here with history of autoimmune disease. Still working up patient to determine what symptoms represent. Patient not feeling well today. Case management kathrin continue to follow. Date Signed: 12/20/2016 05:11 PM Electronically Signed By:JEFF Lynn [facility] CM Progress Note CM Note CM Note Notes: Pt to DC today on oral ABX. He will f/u with ID in 7-10 days. No DC needs. Date Signed: 12/21/2016 04:20 PM Electronically Signed By:Yuli Cohen LCSW Intervention Information Intervention Type:*Incorrect Registration Date of Service:12/20/2016 09:08 AM Patient Type:Observation Staff Member:LINDA Rodriguez, Meghna Hours: Discipline: Severity: Comment:
--- NOTE | 2016-12-21 16:20 | ASDISCHSUM ---
Discharge Information Plan Status:Has needs-TBD Medically Cleared to Leave: Discharge Date: CM D/C Disposition: ADT D/C Disposition:Home, Routine, Self-Care Projected Discharge Date: Transportation at D/C: Discharge Delay Reason: Follow-Up Date: Discharge Slot: Final Diagnosis: Placement Information Patient Contact Information Contact Name:VALENTINO Relationship: Address:[address] Work Phone: [place] Phone: State/Zip Code:[place] [address] Email: Financial Information Financial Class:HMO and PPO Plans Primary Plan Desc: OUT OF STATE PPO Primary Plan Number:[id number] Secondary Plan Desc: Secondary Plan Number: Assessment Information [facility] Initial CM Assessment Discharge Plan Comments Coordination Status Comments Notes: Patient here for workup of symptoms. Unknown at this time what patients needs will be. Case management will follow. Date Signed: 12/20/2016 05:08 PM Electronically Signed By:JEFF Lynn [facility] CM Progress Note CM Note CM Note Notes: Patient here with history of autoimmune disease. Still working up patient to determine what symptoms represent. Patient not feeling well today. Case management kathrin continue to follow. Date Signed: 12/20/2016 05:11 PM Electronically Signed By:JEFF Lynn [facility] CM Progress Note CM Note CM Note Notes: Pt to DC today on oral ABX. He will f/u with ID in 7-10 days. No DC needs. Date Signed: 12/21/2016 04:20 PM Electronically Signed By:Yuli Cohen LCSW Intervention Information Intervention Type:*Incorrect Registration Date of Service:12/20/2016 09:08 AM Patient Type:Observation Staff Member:LINDA Rodriguez, Meghna Hours: Discipline: Severity: Comment:
--- NOTE | 2016-12-21 16:20 | ASDISCHSUM ---
Discharge Information Plan Status:Has needs-TBD Medically Cleared to Leave: Discharge Date: CM D/C Disposition: ADT D/C Disposition:Home, Routine, Self-Care Projected Discharge Date: Transportation at D/C: Discharge Delay Reason: Follow-Up Date: Discharge Slot: Final Diagnosis: Placement Information Patient Contact Information Contact Name:VALENTINO Relationship: Address:[address] Work Phone: City:[facility] Phone: State/Zip Code:[place] [address] Email: Financial Information Financial Class:HMO and PPO Plans Primary Plan Desc: OUT OF STATE PPO Primary Plan Number:[id number] Secondary Plan Desc: Secondary Plan Number: Assessment Information [facility] Initial CM Assessment Discharge Plan Comments Coordination Status Comments Notes: Patient here for workup of symptoms. Unknown at this time what patients needs will be. Case management will follow. Date Signed: 12/20/2016 05:08 PM Electronically Signed By:JEFF Lynn [facility] CM Progress Note CM Note CM Note Notes: Patient here with history of autoimmune disease. Still working up patient to determine what symptoms represent. Patient not feeling well today. Case management kathrin continue to follow. Date Signed: 12/20/2016 05:11 PM Electronically Signed By:JEFF Lynn [facility] CM Progress Note CM Note CM Note Notes: Pt to DC today on oral ABX. He will f/u with ID in 7-10 days. No DC needs. Date Signed: 12/21/2016 04:20 PM Electronically Signed By:Yuil Cohen LCSW Intervention Information Intervention Type:*Incorrect Registration Date of Service:12/20/2016 09:08 AM Patient Type:Observation Staff Member:LINDA Rodriguez, Meghna Hours: Discipline: Severity: Comment:
--- NOTE | 2016-12-22 01:26 | GCON ---
[f rep st] CONSULTATION HEMATOLOGY ONCOLOGY CONSULTATION REASON FOR CONSULTATION: Leukocytosis. HISTORY OF PRESENT ILLNESS: The patient is a 46-year-old gentleman I am asked to see by Dr. Hall regarding leukocytosis. He was admitted 12/19/2016 with fever and bone pain. He is on Enbrel, methotrexate, and Plaquenil for an unspecified rheumatologic disorder (mixed connective tissue disorder). He had a fever and chills on admission, WBC 26.8 (81% neutrophils, 8% bands, 8% lymphocytes, 3% monocytes, peripheral smear with toxic granulation), hemoglobin 16.4, MCV 89.4, platelets 269,000. Blood cultures were negative, respiratory panel PCR negative. UA negative. Chest x-ray negative. CT of the abdomen/ pelvis demonstrated no intra-abdominal process, abscess, adenopathy, mass. Of note, liver and spleen were normal. He received empiric ertapenem in the emergency room and was admitted. His temperature was 38.4 on admission, and he has been afebrile since admission. Yesterday, WBC 17.7 (79% neutrophils, 12% lymphocytes). Today, WBC 9.0 (51% neutrophils, 34% lymphocytes). He has a history of a similar episode 1 year ago when he presented with fever, chills, and leukocytosis. WBC at that time was 27.5, decreasing to 9.8 three days after admission. He had extensive infectious workup including negative Coccidioides, cryptococcal antigen, CMV, IgG-IgM negative, EBV studies consistent with past infection, negative urine histoplasma antigen, negative HIV , negative malaria smear, negative Legionella and mycoplasma serologies. He has seen Dr. Tani Huitron. He has had negative testing for familial Mediterranean fever and TNF receptor associated periodic syndrome. He reports multiple episodes in the past year of fever and arthralgias, for which he has not sought medical attention. PAST MEDICAL HISTORY: 1. Mixed connective tissue disease followed by Rheumatology at [facility]. Apparently , this began as a diagnosis of dermatomyositis in 2011 and now he reports there is some discussion of possible psoriatic arthritis. 2. Hypertension. PAST SURGICAL HISTORY: None. FAMILY HISTORY: He has 5 siblings. His father had prostate cancer. SOCIAL HISTORY: He is a nonsmoker and does not drink alcohol. He is originally from [place]. He works in the [employer]. He is and lives in [place]. REVIEW OF SYSTEMS: CONSTITUTIONAL: Per HPI. No weight loss. HEENT: He reports periodic mouth ulcers with these episodes. CARDIOVASCULAR: No exertional chest pain, palpitations, PND, orthopnea, or lower extremity edema. RESPIRATORY: No cough or dyspnea. GI: No changes in bowel habits. He had a mild nonproductive cough on admission. MUSCULOSKELETAL: Per HPI. HEMATOLOGIC : No bleeding or bruising. LYMPH: No lymphadenopathy. NEUROLOGIC: No new headache, neurologic symptoms. : No dysuria, hematuria. PHYSICAL EXAMINATION: VITAL SIGNS: Blood pressure 122/84, heart rate 71, respirations 18, 94% on room air, temperature 36.6. Afebrile throughout his admission with the exception of initial temperature of 38.4. GENERAL: Alert, oriented, no acute distress. HEENT: No scleral icterus. NECK: Supple. LYMPH : No cervical, supraclavicular, axillary adenopathy. CARDIOVASCULAR: Regular rate and rhythm. LUNGS: Clear to auscultation, breathing comfortably. ABDOMEN : Positive bowel sounds, soft, and nontender. SKIN: No rashes. NEUROLOGIC: Grossly nonfocal. LABORATORY DATA: CBC as above (12/20/2016). CMP remarkable for total bilirubin 2.2, all indirect. Otherwise normal liver function tests. CRP on admission 21.3, yesterday 124.5. Microbiology and radiology studies as above. IMPRESSION AND PLAN: Fever and leukocytosis with similar episode 1 year ago. His peripheral smear is consistent with reactive leukocytosis with neutrophilia and toxic granulation. No obvious infection. He has had an extensive Infectious Disease workup, which has been negative. His CBC is otherwise normal. His leukocytosis this admission promptly returned to normal and it appears a similar pattern last year as well. He has no other CBC abnormalities to suggest an underlying bone marrow disorder. Spleen was normal on CT. I do not think a bone marrow biopsy would be particularly helpful given the self limited nature of the leukocytosis. Whether or not this responded to empiric antibiotics or not is unclear. Given the complexity of his unclear rheumatologic condition, as well as these 2 episodes of unexplained fever and leukocytosis, some additional studies will be requested including quantitative immunoglobulins, JAK2, FISH for BCR ABL. He will be following up with Dr. Huitron as an outpatient in about a week. If there are continuing concerns, he can see me in followup. Case was discussed in detail with Dr. Hall. /[id number]/MODL MTDD
== END 2016-12-21 15:45 | disposition home or self-care (01) | DRG 864 ==
LOC: OBSVTOIN 13:15 → F1N 14:39
PROVIDERS: ADMIT Internal Medicine; ATTEND Internal Medicine
DX: R50.9 Fever, unspecified (principal); D72.829 Elevated white blood cell count, unspecified; M35.1 Other overlap syndromes; E87.2 Acidosis; I10 Essential (primary) hypertension
CPT/HCPCS: 81439-90; 82784-90; 96374; J0696; J1335; J2405; Q9967

== ENCOUNTER 2017-02-19 12:17 | Observation (INO) | payer BC ==
[2017-02-19] MEDS ORDERED: ONDANSETRON DISINTEGRATING 4 MG TAB PO ONE (13:02)
[2017-02-19] MEDS ORDERED: NS 1,000 ML IV ONE (13:29)
[2017-02-19] MEDS ORDERED: KETOROLAC 15 MG/1 ML SDV IVP ONE ×2 (13:30→15:16)
--- NOTE | 2017-02-19 13:31 | EDPHY ---
H & P Stated Complaint: Fever 2 days, body aches, finished z pack Time Seen by Provider: 02/19/17 12:28 HPI/ROS: This patient presents with fever, dry cough myalgias. He explains that 10 days ago he developed sore throat and a productive cough treated with Z-Samy by his primary care physician with resolution of his symptoms for 2 days (finish the antibiotic 2 days ago) however, over the past 2 days he has developed dry frequent cough and now over the past 24 hr developed a fever to 102 associated with chills. He also had episode of vomiting this morning. Reports diffuse myalgias. The patient reports 5 similar illnesses this year he had 3 previous admissions with significant leukocytosis but no specific etiology for the illness. He does report loose stools for 3 days in addition 1-2 episodes a day of loose watery stools. He denies any other acute symptoms. ROS: Positive fatigue. Fevers. No other constitutional symptoms HEENT: Positive mild coryza. No facial pain. No ear pain or sore throat. Neuro: He reports mild generalized headache similar to previous headaches with fevers. No focal numbness tingling or weakness. No confusion. However he does report difficulty concentrating today. Pulmonary: Dry cough. Mild dyspnea. No pleuritic pain. Cardiovascular: No heart palpitations or lightheadedness. GI: No abdominal pain. No bloody stools or dark tarry stools. No hematemesis. : No dysuria, frequency, urgency, testicular pain or swelling. Endocrine: No complaints Integumentary: No rash Complete review of symptoms otherwise negative. Source: Patient Exam Limitations: No limitations - Personal History Current Tetanus Diphtheria and Acellular Pertussis (TDAP): Yes - Medical/Surgical History Hx Asthma: No Hx Chronic Respiratory Disease: No Hx Diabetes: No Hx Cardiac Disease: No Hx Renal Disease: No Hx Cirrhosis: No Hx Alcoholism: No Hx HIV/AIDS: No Hx Splenectomy or Spleen Trauma: No Other PMH: PMH: Mixed connective tissue disorder, Dermatomysitis/discoid lupus, HTN, AFIB,. PSH: RIGHT KNEE - Family History Significant Family History: No pertinent family hx - Social History Smoking Status: Never smoked Alcohol Use: Occasionally Drug Use: None Additional Social History: No recent foreign travel. His daughter also currently has a GI illness. - Physical Exam Exam: Vital signs notable for initial temperature of 38degrees centigrade. Pulse of 109. Other vitals normal on arrival General Appearance: Alert, no distress. Eyes: Pupils equal and round no pallor or injection. ENT, Mouth: Mucous membranes moist. Oropharynx: Clear ears: Clear bilaterally Respiratory: There are no retractions, lungs are clear to auscultation. Cardiovascular: Tachycardic with no murmur gallop or rub. No JVD. No peripheral edema. Gastrointestinal: Abdomen is soft and nontender, no masses, bowel sounds normal. : No testicular tenderness. No CVA tenderness Back: Nontender Neurological: GCS 15 with no focal deficits. Skin: Warm and dry, no rashes. Musculoskeletal: Neck is supple nontender. Extremities are symmetrical, full range of motion. Psychiatric: Mood and affect are normal DIFFERENTIAL DIAGNOSIS: After history and physical exam differential diagnosis was considered for influenza, viral gastroenteritis with fever, pneumonia, bronchitis, sepsis, UTI Constitutional: Initial Vital Signs Temperature (C) 38.1 C 02/19/17 12:22 Heart Rate 109 H 02/19/17 12:22 Respiratory Rate 20 02/19/17 12:22 Blood Pressure 126/98 H 02/19/17 12:22 O2 Sat (%) 95 02/19/17 12:22 O2 Delivery Mode Nasal Cannula O2 (L/minute) 2 Allergies/Adverse Reactions: No Known Allergies Allergy (Verified 02/19/17 12:26) Home Medications: Medication Instructions Recorded Bisoprolol Fumarate [Zebeta (*)] 5 mg PO DAILY 11/08/15 Folic Acid [Folic Acid 1 MG (*)] 2 mg PO DAILY 11/08/15 Acetaminophen [Tylenol 325mg (*)] 650 mg PO Q4HRS PRN tab 12/21/16 Enbrel 02/19/17 Plaquenil 200 mg (*) 02/19/17 Medical Decision Making - Diagnostics Imaging Results: Imaging Impressions Chest X-Ray 02/19/17 13:29 Impression: Stable and normal. Chest x-ray: Two view: Normal by my interpretation Imaging: I viewed and interpreted images myself ED Course/Re-evaluation: The patient initially declined IV and workup other than a nasal flu swab thinking that he had influenza and didn't want to proceed further if the rapid influenza is positive. At 1:30 p.m. with a negative rapid flu swab the patient accepts IV, normal saline and further workup. His nausea was treated with Zofran sublingual with improvement 1 L normal saline bolus Toradol 15 mg IV with persistent fever on recheck up to 38.9 centigrade Tylenol p.o. , also treated with repeat dose of Toradol 15 mg The patient has on recheck at 3:00 p.m. borderline hypoxia at 89% on room air warranting albuterol neb and nasal cannula O2. I spoke with Dr. Sousa-infectious diseases suggest that we check a C diff given recent loose stools in recent antibiotics. Will hold on oral antibiotics at this time given that he does completed Zithromax course 2 days ago and has no focal infiltrate. Discussion: Patient with significant leukocytosis with some edema suppression attributable to his Enbrel that he takes for his autoimmune disorders. He presents looking like influenza with a negative rapid influenza test. Given borderline hypoxia with white count [id number] will admit for further workup observation and treatment. He meets sepsis criteria but not severe sepsis at this point and will await PCR flu studies prior to proceeding with any antibiotics given lack of evidence of bacterial etiology at this time and recent Zithromax course that he completed 2 days ago. Patient is agreeable to admission for further observation workup. Pending studies include the PCR influenza and the C diff toxin stool study I spoke with Dr. Esposito, hospitalist accepts this patient for transfer to [facility] Laboratory Results: Laboratory Results 02/19/17 13:50 02/19/17 13:50 02/19/17 02/19/17 02/19/17 14:35 13:50 13:50 WBC RBC Hgb Hct MCV MCH MCHC RDW Plt Count MPV Neut % (Auto) Lymph % (Auto) Ward % (Auto) Eos % (Auto) Baso % (Auto) Nucleat RBC Rel Count Absolute Neuts (auto) Absolute Lymphs (auto) Absolute Monos (auto) Absolute Eos (auto) Absolute Basos (auto) Absolute Nucleated RBC Immature Gran % Immature Gran # ESR VBG Lactic Acid 2.1 mmol/L mmol/L (0.7-2.1) Sodium 139 mEq/L mEq/L (134-144) Potassium 4.0 mEq/L mEq/L (3.5-5.2) Chloride 101 mEq/L mEq/L (97-110) Carbon Dioxide 22 mEq/l mEq/l (22-31) Anion Gap 16 mEq/L mEq/L (8-16) BUN 15 mg/dL mg/dL (7-23) Creatinine 1.1 mg/dL mg/dL (0.7-1.3) Estimated GFR > 60 Glucose 108 mg/dL H mg/dL (70-100) Calcium 9.6 mg/dL mg/dL (8.5-10.4) Urine Color YELLOW Urine Appearance CLEAR Urine pH 7.0 (5.0-7.5) Ur Specific [place] 1.015 (1.002-1.030) Urine Protein NEGATIVE (NEGATIVE) Urine Ketones NEGATIVE (NEGATIVE) Urine Blood NEGATIVE (NEGATIVE) Urine Nitrate NEGATIVE (NEGATIVE) Urine Bilirubin NEGATIVE (NEGATIVE) Urine Urobilinogen 0.2 EU EU (0.2-1.0) Ur Leukocyte Esterase NEGATIVE (NEGATIVE) Urine Glucose NEGATIVE (NEGATIVE) Nasal Influenza A PCR Nasal Influenza B PCR Influenza A,B Rapid 02/19/17 02/19/17 02/19/17 13:50 13:05 13:05 WBC 22.35 10^3/uL H 10^3/uL (3.80-9.50) RBC 5.16 10^6/uL 10^6/uL (4.40-6.38) Hgb 16.5 g/dL g/dL (13.7-17.5) Hct 46.1 % % (40.0-51.0) MCV 89.3 fL fL (81.5-99.8) MCH 32.0 pg pg (27.9-34.1) MCHC 35.8 g/dL g/dL (32.4-36.7) RDW 12.4 % % (11.5-15.2) Plt Count 221 10^3/uL 10^3/uL (150-400) MPV 9.5 fL fL (8.7-11.7) Neut % (Auto) 91.2 % H % (39.3-74.2) Lymph % (Auto) 3.0 % L % (15.0-45.0) Ward % (Auto) 4.7 % % (4.5-13.0) Eos % (Auto) 0.3 % L % (0.6-7.6) Baso % (Auto) 0.3 % % (0.3-1.7) Nucleat RBC Rel Count 0.0 % % (0.0-0.2) Absolute Neuts (auto) 20.41 10^3/uL H 10^3/uL (1.70-6.50) Absolute Lymphs (auto) 0.66 10^3/uL L 10^3/uL (1.00-3.00) Absolute Monos (auto) 1.04 10^3/uL H 10^3/uL (0.30-0.80) Absolute Eos (auto) 0.06 10^3/uL 10^3/uL (0.03-0.40) Absolute Basos (auto) 0.06 10^3/uL 10^3/uL (0.02-0.10) Absolute Nucleated RBC 0.00 10^3/uL 10^3/uL (0-0.01) Immature Gran % 0.5 % % (0.0-1.1) Immature Gran # 0.12 10^3/uL H 10^3/uL (0.00-0.10) ESR 6 MM/HR MM/HR (0-15) VBG Lactic Acid Sodium Potassium Chloride Carbon Dioxide Anion Gap BUN Creatinine Estimated GFR Glucose Calcium Urine Color Urine Appearance Urine pH Ur Specific [place] Urine Protein Urine Ketones Urine Blood Urine Nitrate Urine Bilirubin Urine Urobilinogen Ur Leukocyte Esterase Urine Glucose Nasal Influenza A PCR Pending Nasal Influenza B PCR Pending Influenza A,B Rapid NEGATIVE FOR FLU (NEGATIVE) Medications Given: Discontinued Medications Acetaminophen (Tylenol) 1,000 mg PO EDNOW ONE Stop: 02/19/17 14:57 Last Admin: 02/19/17 15:00 Dose: 1,000 mg Sodium Chloride (Ns) 1,000 mls @ 0 mls/hr IV ONCE ONE; Wide Open PRN Reason: Protocol Stop: 02/19/17 13:30 Last Admin: 02/19/17 14:21 Dose: 1,000 mls Ketorolac Tromethamine (Toradol) 15 mg IVP EDNOW ONE Stop: 02/19/17 13:31 Last Admin: 02/19/17 14:21 Dose: 15 mg Ondansetron HCl (Zofran Odt) 8 mg PO EDNOW ONE Stop: 02/19/17 13:03 Last Admin: 02/19/17 13:12 Dose: 8 mg Departure - Departure Disposition: [facility] Acute Clinical Impression: Cough Fever Qualifiers: Fever type: unspecified Qualified Code(s): R50.9 - Fever, unspecified Vomiting Qualifiers: Vomiting type: unspecified Vomiting Intractability: non-intractable Nausea presence: with nausea Qualified Code(s): R11.2 - Nausea with vomiting, unspecified Diarrhea Qualifiers: Diarrhea type: unspecified type Qualified Code(s): R19.7 - Diarrhea, unspecified Leukocytosis Qualifiers: Leukocytosis type: other Qualified Code(s): D72.828 - Other elevated white blood cell count Condition: Fair
[2017-02-19 14:01] LABS: PLATELET COUNT 221 10^3/uL (150-400)
[2017-02-19] MEDS ORDERED: ACETAMINOPHEN 500 MG TAB PO ONE (14:56)
[2017-02-19] MEDS ORDERED: ALBUTEROL 60 PUFFS/8 GM MDI IH ONE (15:13)
[2017-02-19] MEDS ORDERED: ALBUTEROL 3 ML DEYVIAL IH ONE (15:16)
[2017-02-19] MEDS ORDERED: OSELTAMIVIR PHOSPHATE 75 MG CAP PO SCH (16:00)
[2017-02-19] MEDS ORDERED: OSELTAMIVIR PHOSPHATE 75 MG CAP ONE (16:34)
--- NOTE | 2017-02-19 18:23 | PDGENHP ---
History and Physical - Chief Complaint fever - History of Present Illness 46 y/o male on Enbrel for dermatomyositis/discoid lupus/MCTD presents with fever and body aches that started yesterday. He did have an episode of vomiting today. He has had diarrhea over the past few weeks. He 1st started feeling ill around February 08 at which time he had nausea. Following the nausea a developed a cough. He saw his primary care provider about 5 days ago started on azithromycin which she has since finished. Since finishing the azithromycin he developed a fever and body aches over the past 2 days. He was exposed to a child who was sick with vomiting and maybe some fevers. History Information - Allergies/Home Medication List Allergies/Adverse Reactions: No Known Allergies Allergy (Verified 02/19/17 12:26) Home Medications: Bisoprolol Fumarate [Zebeta (*)] 5 mg PO DAILY 11/08/15 [Last Taken 02/19/17] Etanercept [Enbrel] 50 mg SC MO@0900 02/19/17 [Last Taken 02/13/17] Hydroxychloroquine Sulfate [Plaquenil 200 mg (*)] 200 mg PO BID 02/19/17 [Last Taken 02/19/17] Valacyclovir HCl [Valtrex] 1,000 mg PO BID 02/19/17 [Last Taken 02/19/17] I have personally reviewed and updated: family history, medical history, social history, surgical history - Past Medical History atrial fibrillation, hypertension Additional medical history: 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 followed by Dr. Deshpande, rheumatology at [facility] - Surgical History Reports: no pertinent surgical hx - Family History Positive for: CAD - Social History Smoking Status: Never smoked Alcohol Use: Occasionally Drug Use: None Additional social history: Originally from [place], here for past 9 yrs. Works in [employer]. Review of Systems Review of Systems: ROS: 10pt was reviewed & negative except for what was stated in HPI & below Physical Exam Physical Exam: Temp Pulse Resp BP Pulse Ox 36.8 C 88 18 117/72 93 02/19/17 17:29 02/19/17 17:29 02/19/17 17:29 02/19/17 17:29 02/19/17 17:29 O2 (L/minute) 2 Constitutional: no apparent distress, appears nourished, not in pain Eyes: PERRL, anicteric sclera, EOMI Ears, Nose, Mouth, Throat: moist mucous membranes, hearing normal, ears appear normal, no oral mucosal ulcers Cardiovascular: regular rate and rhythym, no murmur, rub, or gallop, No edema Respiratory: no respiratory distress, no rales or rhonchi, clear to auscultation Gastrointestinal: normoactive bowel sounds, soft, non-tender abdomen, no palpable masses, No guarding, No rebound Genitourinary: no bladder fullness, no bladder tenderness Skin: warm, normal color, no rashes or abrasions, no fluctuance, no induration, No mottled Musculoskeletal: full muscle strength, no muscle tenderness, normal joint ROM, no joint effusions Neurologic: AAOx3, CN II-XII Intact, No facial droop Psychiatric: interacting appropriately, not anxious, not encephalopathic, thought process linear Lymph, Heme, Immunologic: no cervical LAD, no supraclavicular LAD Lab Data & Imaging Review 02/19/17 13:50 02/19/17 13:50 WBC 22.35 10^3/uL (3.80-9.50) H 02/19/17 13:50 RBC 5.16 10^6/uL (4.40-6.38) 02/19/17 13:50 Hgb 16.5 g/dL (13.7-17.5) 02/19/17 13:50 Hct 46.1 % (40.0-51.0) 02/19/17 13:50 MCV 89.3 fL (81.5-99.8) 02/19/17 13:50 MCH 32.0 pg (27.9-34.1) 02/19/17 13:50 MCHC 35.8 g/dL (32.4-36.7) 02/19/17 13:50 RDW 12.4 % (11.5-15.2) 02/19/17 13:50 Plt Count 221 10^3/uL (150-400) 02/19/17 13:50 MPV 9.5 fL (8.7-11.7) 02/19/17 13:50 Neut % (Auto) 91.2 % (39.3-74.2) H 02/19/17 13:50 Lymph % (Auto) 3.0 % (15.0-45.0) L 02/19/17 13:50 [place] % (Auto) 4.7 % (4.5-13.0) 02/19/17 13:50 Eos % (Auto) 0.3 % (0.6-7.6) L 02/19/17 13:50 Baso % (Auto) 0.3 % (0.3-1.7) 02/19/17 13:50 Nucleat RBC Rel Count 0.0 % (0.0-0.2) 02/19/17 13:50 Absolute Neuts (auto) 20.41 10^3/uL (1.70-6.50) H 02/19/17 13:50 Absolute Lymphs (auto) 0.66 10^3/uL (1.00-3.00) L 02/19/17 13:50 Absolute Monos (auto) 1.04 10^3/uL (0.30-0.80) H 02/19/17 13:50 Absolute Eos (auto) 0.06 10^3/uL (0.03-0.40) 02/19/17 13:50 Absolute Basos (auto) 0.06 10^3/uL (0.02-0.10) 02/19/17 13:50 Absolute Nucleated RBC 0.00 10^3/uL (0-0.01) 02/19/17 13:50 Immature Gran % 0.5 % (0.0-1.1) 02/19/17 13:50 Immature Gran # 0.12 10^3/uL (0.00-0.10) H 02/19/17 13:50 ESR 6 MM/HR (0-15) 02/19/17 13:50 VBG Lactic Acid 2.1 mmol/L (0.7-2.1) 02/19/17 13:50 Sodium 139 mEq/L (134-144) 02/19/17 13:50 Potassium 4.0 mEq/L (3.5-5.2) 02/19/17 13:50 Chloride 101 mEq/L (97-110) 02/19/17 13:50 Carbon Dioxide 22 mEq/l (22-31) 02/19/17 13:50 Anion Gap 16 mEq/L (8-16) 02/19/17 13:50 BUN 15 mg/dL (7-23) 02/19/17 13:50 Creatinine 1.1 mg/dL (0.7-1.3) 02/19/17 13:50 Estimated GFR > 60 02/19/17 13:50 Glucose 108 mg/dL (70-100) H 02/19/17 13:50 Calcium 9.6 mg/dL (8.5-10.4) 02/19/17 13:50 Urine Color YELLOW 02/19/17 14:35 Urine Appearance CLEAR 02/19/17 14:35 Urine pH 7.0 (5.0-7.5) 02/19/17 14:35 Ur Specific [place] 1.015 (1.002-1.030) 02/19/17 14:35 Urine Protein NEGATIVE (NEGATIVE) 02/19/17 14:35 Urine Ketones NEGATIVE (NEGATIVE) 02/19/17 14:35 Urine Blood NEGATIVE (NEGATIVE) 02/19/17 14:35 Urine Nitrate NEGATIVE (NEGATIVE) 02/19/17 14:35 Urine Bilirubin NEGATIVE (NEGATIVE) 02/19/17 14:35 Urine Urobilinogen 0.2 EU (0.2-1.0) 02/19/17 14:35 Ur Leukocyte Esterase NEGATIVE (NEGATIVE) 02/19/17 14:35 Urine Glucose NEGATIVE (NEGATIVE) 02/19/17 14:35 Urine Opiates Screen NEGATIVE (NEGATIVE) 02/19/17 14:45 Urine Barbiturates NEGATIVE (NEGATIVE) 02/19/17 14:45 Ur Phencyclidine Scrn NEGATIVE (NEGATIVE) 02/19/17 14:45 Ur Amphetamine Screen NEGATIVE (NEGATIVE) 02/19/17 14:45 U Benzodiazepines Scrn NEGATIVE (NEGATIVE) 02/19/17 14:45 Urine Cocaine Screen NEGATIVE (NEGATIVE) 02/19/17 14:45 U Marijuana (THC) Screen NEGATIVE (NEGATIVE) 02/19/17 14:45 Influenza A,B Rapid NEGATIVE FOR FLU (NEGATIVE) 02/19/17 13:05 Visualized and Interpreted Chest x-ray results: Yes Chest X-Ray results: no infiltrate, normal Assessment & Plan Assessment: This is a 46-year-old male 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
[2017-02-19] MEDS ORDERED: PROMETHAZINE HCL 25 MG/ML INJ IVP PRN (18:52)
[2017-02-19] MEDS ORDERED: ONDANSETRON 4 MG/2 ML VIAL IVP PRN (18:52)
[2017-02-19] MEDS: HYDROXYCHLOROQUINE SULFATE 200 MG TAB PO SCH (20:36)
[2017-02-19] MEDS: valACYclovir 500 MG TAB PO SCH (20:36)
[2017-02-20] MEDS: ACETAMINOPHEN 325 MG TAB PO PRN ×2 (02:17→13:11)
[2017-02-20 05:31] LABS: PLATELET COUNT 203 10^3/uL (150-400)
[2017-02-20 09:06] VITALS: PULSE 68; RESP 12; TEMP 98.1
[2017-02-20] MEDS: valACYclovir 500 MG TAB PO SCH (09:08)
[2017-02-20] MEDS: HYDROXYCHLOROQUINE SULFATE 200 MG TAB PO SCH (09:08)
--- NOTE | 2017-02-20 11:16 | ASMTCASEMG ---
Living Arrangements What is your living Answers: With Spouse arrangement? Who do you live with? Type Of Residence What kind of residence do Answers: House you live in? Discharge Plan Comments Coordination Status Comments Notes: Patient is a 46yo male with a hx of mixed connective tissue disorder, dermatomyositis, psoriatic arthritis and discoid lupus. He was admitted for systemic inflammatory response syndrome, r/o sepsis and suspected influenza. 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 Deshpande. No therapies have been ordered. D/C needs TBD. CM will follow. Date Signed: 02/20/2017 11:17 AM Electronically Signed By:Rocio Jimenez LCSW
[2017-02-20] MEDS ORDERED: IBUPROFEN 600 MG TAB PO PRN (13:04)
[2017-02-20 15:47] VITALS: BP 129/84; O2SAT 92
--- NOTE | 2017-02-20 19:20 | GDS ---
[f rep st] DISCHARGE SUMMARY SERVICE: [facility] hospitalist. CONSULTS: None. PROCEDURES: Chest x-ray, which was negative for acute abnormalities or infection. INITIAL DIAGNOSES: 1. Systemic inflammatory response syndrome with fever. 2. Mixed connective tissue disorder, on immunosuppressants. DISCHARGE DIAGNOSES: 1. Systemic inflammatory response syndrome with fever. 2. Mixed connective tissue disorder, on immunosuppressants. H AND P: Please see previously dictated note by Dr. Esposito. HOSPITAL COURSE: SIRS. The patient has been admitted several times within the last year for similar episodes and has had an extensive workup previously with Infectious Disease, Hematology, and his [place] clinical researcher (Dr. Huang at [facility]). He saw Dr. Huitron from Infectious Disease [facility] 3 weeks ago prior to development of the most recent symptoms and was placed on empiric valacyc lovir. He had blood cultures drawn in the emergency department but was not started on antibiotics as there was no focal source. He did have a temperature of 102 when he was initially admitted, but for greater than 24 hours, he has been afebrile, and his blood cultures are negative x2 at 24 hours. Hi s white blood cell count has decreased from 22,000 at admission to 19.6 at discharge, with the neutro philia noted at both times. He did have a slightly elevated procalcitonin of 0.46, normal urine, neg ative flu A and B testing. On the day of discharge, he said he generally felt well, but did have bod y aches and chills overnight. He was eating, drinking, ambulating without difficulty. He did not tim ve any stomach pain or throat pain. He had a slight cough and congestion, but it was minimal. He de nied sinus pain. His only symptom was a mild left frontal headache, which was not responding well to Tylenol. He does recall having frontal headaches with his previous episodes also but does not remem rima if it was unilateral. He reports having a normal MRI as an outpatient within the last few weeks. He is going to be discharged home as he did not appear to have a serious bacterial or viral infecti on at this time. DISCHARGE MEDICATIONS: He should continue all of his home medications, including Zebeta, Plaquenil, and Valtrex. I have asked him to hold Enbrel until he speaks to Dr. Huitron or Dr. Huang. He can take T ylenol or ibuprofen as needed. If at any time he has changing symptoms, he should return for evaluat ion. Otherwise, he should follow up with Dr. Huang at [facility] Rheumatology within a week; Margarito Huitrno, Infectious Disease, within a few days to a week; and also, his primary care provider, Margarito Scott, [facility], within a week. He will need a repeat CBC drawn to [facility] on the leukocytosis at one of these followup appointments. Copy requested to: Dr. Huang Rheumatology [facility] /[id number]/MODL
--- NOTE | 2017-02-21 16:26 | ASDISCHSUM ---
Discharge Information Plan Status:Home with No Needs Medically Cleared to Leave:02/19/2017 Discharge Date:02/20/2017 04:30 PM CM D/C Disposition: ADT D/C Disposition:Home, Routine, Self-Care Projected Discharge Date:02/20/2017 12:00 AM Transportation at D/C: Discharge Delay Reason: Follow-Up Date:02/20/2017 12:00 AM Discharge Slot: Final Diagnosis: Placement Information Patient Contact Information Contact Name:VALENTINO Relationship: Address:[address] Work Phone: City:[facility] Phone: [facility]/Zip Code:[place] [address] Email: Financial Information Financial Class:HMO and PPO Plans Primary Plan Desc: OUT OF STATE PPO Primary Plan Number:[id number] Secondary Plan Desc: Secondary Plan Number: Assessment Information [facility] Initial CM Assessment Living Arrangements What is your living Answers: With Spouse arrangement? Who do you live with? Type Of Residence What kind of residence do Answers: House you live in? Discharge Plan Comments Coordination Status Comments Notes: Patient is a 46yo male with a hx of mixed connective tissue disorder, dermatomyositis, psoriatic arthritis and discoid lupus. He was admitted for systemic inflammatory response syndrome, r/o sepsis and suspected influenza. If patient's condition does not improve, patient requests to move to [place] where he is followed by his chiropractic care, Dr. Deshpande. No therapies have been ordered. D/C needs TBD. CM will follow. Date Signed: 02/20/2017 11:17 AM Electronically Signed By:Rocio Jimenez LCSW Intervention Information
== END 2017-02-20 16:30 | disposition home or self-care (01) ==
LOC: CED 12:17 → CEDHOLD 15:46 → F3E 17:24
PROVIDERS: ADMIT Family Medicine; ATTEND Family Medicine
DX: R50.9 Fever, unspecified (principal); R65.10 Systemic inflammatory response syndrome (SIRS) of non-infectious origin without acute organ dysfunction; M33.90 Dermatopolymyositis, unspecified, organ involvement unspecified; I48.91 Unspecified atrial fibrillation; I10 Essential (primary) hypertension; L93.0 Discoid lupus erythematosus; L40.50 Arthropathic psoriasis, unspecified
CPT/HCPCS: 71020; G0378; 80048-PO; 80307-PO; 81003-PO; 83605-PO; 85025-PO; 85652-PO; 87400-PO; 96374; J1885

== ENCOUNTER → 2017-02-28 | Outpatient (CLI) | payer BC ==
[~2017-02-28] MED LIST: IOPAMIDOL (ISOVUE-300) 100 ML BTL ONE
== END ==
LOC: FIMAGING 11:05
PROVIDERS: ATTEND Internal Medicine Infectious Disease
DX: R50.9 Fever, unspecified (principal); R05 Cough; M51.26 Other intervertebral disc displacement, lumbar region; M51.37 Other intervertebral disc degeneration, lumbosacral region
CPT/HCPCS: Q9967